=== PATIENT | male | born 1955 | race Caucasian/White ===

== ENCOUNTER 2017-11-22 18:01 | Emergency (ER) | payer MEDICAID ==
[~2017-11-22] VITALS: Ht 182.9 cm; Wt 95.3 kg
[~2017-11-22 18:01] MED LIST: ATRIPLA
[2017-11-22 18:21] VITALS: BP_SYST 163
[2017-11-22 19:25] VITALS: BP_SYST 140
== END 2017-11-22 19:25 ==
LOC: SED 18:01
DX: R68.84 Jaw pain (principal); Y04.0XXA Assault by unarmed brawl or fight, initial encounter; Y93.89 Activity, other specified; Y92.89 Other specified places as the place of occurrence of the external cause; Y99.8 Other external cause status
CPT/HCPCS: 99283

== ENCOUNTER 2022-03-13 05:51 | Emergency (ER) | payer BC, MEDICAID ==
[~2022-03-13] VITALS: Ht 182.9 cm; Wt 104.3 kg
--- NOTE | 2022-03-13 06:20 | NUR ---
Patient ambulatory to bed 7 for evaluation and treatment
[2022-03-13 06:25] VITALS: BP_SYST 154
[2022-03-13] MEDS ORDERED: LIDOCAINE 1% 10 MG/ML, 20 ML MDV IM ONE (06:30)
--- NOTE | 2022-03-13 06:31 | NUR ---
66 YR OLD MALE PT AOX4, AMBULATORY WITH COMPLAINT OF RIGHT FINGER LACERATION WITH GLASS IN WOUND NOTED WITH ACTIVE BLEEDING. PT REPORTS LOOKING FOR SOMETHING IN A BAG AND FEELING GLASS IN FINGER. MD AT THE BEDSIDE.
--- NOTE | 2022-03-13 06:39 | NUR ---
MD KEARNS REMOVED A OIECE OF GLASS FROM WOUND, PT TOLERATED WELL. AWAITING XRAY FOR DISPOSITION.
[2022-03-13] MEDS ORDERED: CEPH-548 PO (07:12)
--- NOTE | 2022-03-13 07:41 | NUR ---
ASSESSED PT AT BED SIDE, NO ACUTE CHANGES IN PT CONDITION. BED LOWERED AND LOCKED RAILS UP
[2022-03-13 08:01] VITALS: BP_SYST 140
--- NOTE | 2022-03-13 08:02 | NUR ---
Patient given written and verbal discharge instructions and verbalizes understanding. ER Dr Favian POST discussed with patient the results and treatment provided. Patient in stable condition. ID arm band removed. No active bleeding Rx of given. Patient educated on pain management and to follow up with PMD. Pavel cephalexin Scale . Opportunity for questions provided and answered. Medication side effect fact sheet provided.
== END 2022-03-13 08:01 | disposition home or self-care (01) ==
LOC: SED 05:51
DX: S61.214A Laceration without foreign body of right ring finger without damage to nail, initial encounter (principal); W45.8XXA Other foreign body or object entering through skin, initial encounter; Y93.89 Activity, other specified; Y92.89 Other specified places as the place of occurrence of the external cause; Y99.8 Other external cause status
CPT/HCPCS: 99283